=== PATIENT | male | born 1965 | race Caucasian/White ===

== ENCOUNTER 2024-03-04 13:15 | Inpatient (IN) | payer BC ==
[~2024-03-04] VITALS: Ht 177.8 cm; Wt 98.0 kg
[2024-03-04 13:31] VITALS: BP 113/74; PULSE 110; RESP 18; TEMP 103; O2SAT 98
[2024-03-04 14:36] LABS: BASOPHILS # (AUTO) 0.1 K/uL (0.00-0.22); BASOPHILS % (AUTO) 0.4 % (0.0-2.0); HEMATOCRIT 39.3 % (36-52); HEMOGLOBIN 13.7 g/dL (12.0-18.0); LYMPHOCYTES # (AUTO) 0.8 K/uL (2.0-11.5); LYMPHOCYTES % (AUTO) 6.1 % (20.5-51.1); MEAN CORPUSCULAR HEMOGLOBIN 29 pg (27-31); MEAN CORPUSCULAR HGB CONC 35 g/dL (33-37); MEAN CORPUSCULAR VOLUME 83.7 fL (80-94); MONOCYTES % (AUTO) 8.1 % (1.7-9.3); NEUTROPHILS # (AUTO) 10.7 K/uL (1.8-7.7); NEUTROPHILS % (AUTO) 85.4 % (42.2-75.2); PLATELET COUNT (AUTO) 210 K/uL (140-450); RED CELL DISTRIBUTION WIDTH 14.3 % (11.6-13.7); WHITE BLOOD COUNT (AUTO) 12.5 K/uL (4.8-10.8)
[2024-03-04] MEDS: NACL 0.9% 2,000 ML IV SCH (14:39)
[2024-03-04 14:45] LABS: APPEARANCE,URINE CLEAR (CLEAR); BILIRUBIN,URINE 1+ (NEGATIVE); BLOOD, URINE 1+ (NEGATIVE); COLOR,URINE YELLOW (YELLOW); LEUKOCYTE ESTERASE ,URINE NEGATIVE (NEGATIVE); NITRITE, URINE NEGATIVE (NEGATIVE); PROTEIN,URINE 1+ (NEGATIVE); UGLUCOSE NEGATIVE (NEGATIVE)
[2024-03-04 14:53] LABS: ANION GAP 13.6 (8-16); CALCIUM 8.7 mg/dL (8.5-10.1); CARBON DIOXIDE 27.4 mmol/L (21-32); CREATININE 1.7 mg/dL (0.6-1.3)
[2024-03-04 14:59] LABS: ALBUMIN 3.4 g/dL (3.4-5.0); BILIRUBIN,DIRECT 0.3 mg/dL (0.0-0.3); TOTAL BILIRUBIN 0.8 mg/dL (0.0-1.0); TOTAL PROTEIN, SERUM 7.8 g/dL (6.4-8.2)
[2024-03-04 15:11] LABS: LACTIC ACID 3.6 mmol/L (0.4-2.0)
[2024-03-04] MEDS ORDERED: cefTRIAXone 1,000 MG VIAL ONE (15:15)
[2024-03-04 15:28] LABS: ICTOTEST NEGATIVE (NEGATIVE)
[2024-03-04 15:29] LABS: BACTERIA,URINE FEW /HPF (None Seen); MUCUS,URINE None Seen /LPF (None Seen); SQUAMOUS EPITHELIAL CELL,UR 4-10 (MOD) /LPF (0-3 (FEW)); TRICHOMONAS,URINE None Seen /HPF (None Seen); YEAST,URINE None Seen /HPF (None Seen)
[2024-03-04 15:30] LABS: FINE GRANULAR CASTS,URINE 0-10 /LPF (None Seen)
[2024-03-04] MEDS: KETOROLAC 30 MG/ML VIAL IVP ONE (15:43)
[2024-03-04] MEDS: ACETAMINOPHEN EXTRA STRENGTH 500 MG TAB PO ONE (15:46)
[2024-03-04] MEDS: POTASSIUM CHLORIDE 10 MEQ TABER PO ONE (15:49)
[2024-03-04] MEDS: MAGNESIUM OXIDE 400 MG TAB PO ONE (15:51)
[2024-03-04] MEDS ORDERED: AZITHROMYCIN 500 MG INJ VIAL IV ONE (17:08)
[2024-03-04] MEDS: NACL 0.9% 500 ML IV ONE (17:09)
[2024-03-04] MEDS ORDERED: ALBUTEROL 0.083% 2.5 MG/3 ML NEBU INH PRN (17:10)
[2024-03-04] MEDS ORDERED: ONDANSETRON 4 MG/2 ML VIAL IVP PRN (17:10)
[2024-03-04] MEDS ORDERED: HYDROcodone/APAP 5/325 MG 1 TAB TAB PO PRN ×2 (17:10)
[2024-03-04] MEDS ORDERED: AZITHROMYCIN 500 MG in DEXTROSE 5% 250 ML IV SCH (17:10)
[2024-03-04] MEDS: AZITHROMYCIN 500 MG in DEXTROSE 5% 250 ML IV ONE (17:13)
[2024-03-04] MEDS: NACL 0.9% 1,000 ML IV SCH (18:23)
[2024-03-04 19:08] LABS: FLU A ANTIGEN negative (NEGATIVE); FLU B ANTIGEN negative (NEGATIVE)
[2024-03-04] MEDS: IPRATROPIUM 0.02% 0.5 MG/2.5 ML NEBU INH SCH (19:27)
[2024-03-04 20:05] VITALS: BP 129/84; PULSE 104; RESP 18; RESP 20; TEMP 100.1; O2SAT 94; O2SAT 98
[2024-03-04 20:58] VITALS: PULSE 98; RESP 18; O2SAT 98
[2024-03-04] MEDS: ZINC SULF 220 MG CAP PO SCH (21:10)
[2024-03-04] MEDS: ACETAMINOPHEN 325 MG TAB PO PRN (23:40)
[2024-03-05] VITALS (9 sets, daily range): BP systolic 95–108; BP diastolic 57–66; PULSE 64–104; RESP 17–20; TEMP 97.5–103.1; O2SAT 95–100
[2024-03-05 05:52] LABS: ANION GAP 13.6 (8-16); CALCIUM 7.7 mg/dL (8.5-10.1); CARBON DIOXIDE 24.3 mmol/L (21-32); CREATININE 1.4 mg/dL (0.6-1.3)
[2024-03-05 06:29] LABS: POTASSIUM 2.9 mmol/L (3.5-5.1)
[2024-03-05 06:50] LABS: BASOPHILS # (AUTO) 0.1 K/uL (0.00-0.22); BASOPHILS % (AUTO) 0.6 % (0.0-2.0); EOSINOPHILS % (AUTO) 0.4 % (0.0-4.0); HEMATOCRIT 35.9 % (36-52); HEMOGLOBIN 12.5 g/dL (12.0-18.0); LYMPHOCYTES # (AUTO) 1.4 K/uL (2.0-11.5); LYMPHOCYTES % (AUTO) 12.7 % (20.5-51.1); MEAN CORPUSCULAR HEMOGLOBIN 29 pg (27-31); MEAN CORPUSCULAR HGB CONC 35 g/dL (33-37); MEAN CORPUSCULAR VOLUME 82.9 fL (80-94); MONOCYTES # (AUTO) 1.1 K/uL (0.8-1.0); MONOCYTES % (AUTO) 10.2 % (1.7-9.3); NEUTROPHILS # (AUTO) 8.3 K/uL (1.8-7.7); NEUTROPHILS % (AUTO) 76.1 % (42.2-75.2); PLATELET COUNT (AUTO) 193 K/uL (140-450); RED BLOOD CELL COUNT(AUTO) 4.33 MIL/uL (4.20-6.10); RED CELL DISTRIBUTION WIDTH 13.8 % (11.6-13.7); WHITE BLOOD COUNT (AUTO) 10.9 K/uL (4.8-10.8)
[2024-03-05] MEDS: VITAMIN D 400 IU TAB PO SCH (08:10)
[2024-03-05] MEDS: AZITHROMYCIN 250 MG TAB PO SCH (08:11)
[2024-03-05] MEDS: ASCORBIC ACID 500 MG TAB PO SCH (08:12)
[2024-03-05] MEDS: ENOXAPARIN 40 MG/0.4 ML SYR SUBQ SCH (08:16)
[2024-03-05] MEDS: POTASSIUM CHLORIDE 10 MEQ TABER PO SCH (10:09)
[2024-03-05] MEDS: ZOLPIDEM 5 MG TAB PO PRN (21:33)
[2024-03-06] VITALS (9 sets, daily range): BP systolic 97–116; BP diastolic 51–70; PULSE 60–84; RESP 17–22; TEMP 97.7–98.3; O2SAT 95–100
[2024-03-06 05:21] LABS: BASOPHILS % (AUTO) 0.2 % (0.0-2.0); HEMATOCRIT 33.7 % (36-52); HEMOGLOBIN 11.6 g/dL (12.0-18.0); LYMPHOCYTES # (AUTO) 1.3 K/uL (2.0-11.5); LYMPHOCYTES % (AUTO) 9.4 % (20.5-51.1); MEAN CORPUSCULAR HEMOGLOBIN 29 pg (27-31); MEAN CORPUSCULAR HGB CONC 34 g/dL (33-37); MEAN CORPUSCULAR VOLUME 83.2 fL (80-94); MONOCYTES # (AUTO) 1.1 K/uL (0.8-1.0); MONOCYTES % (AUTO) 8.3 % (1.7-9.3); NEUTROPHILS # (AUTO) 11.3 K/uL (1.8-7.7); NEUTROPHILS % (AUTO) 82.1 % (42.2-75.2); PLATELET COUNT (AUTO) 196 K/uL (140-450); RED BLOOD CELL COUNT(AUTO) 4.05 MIL/uL (4.20-6.10); RED CELL DISTRIBUTION WIDTH 13.9 % (11.6-13.7); WHITE BLOOD COUNT (AUTO) 13.8 K/uL (4.8-10.8)
[2024-03-06 05:40] LABS: ANION GAP 13.1 (8-16); CALCIUM 7.8 mg/dL (8.5-10.1); CARBON DIOXIDE 25.1 mmol/L (21-32); CREATININE 1.1 mg/dL (0.6-1.3); POTASSIUM 4.2 mmol/L (3.5-5.1)
[2024-03-06 07:42] LABS: LACTIC ACID 1.3 mmol/L (0.4-2.0)
[2024-03-07 01:40] VITALS: O2SAT 96
[2024-03-07 02:49] VITALS: O2SAT 99
[2024-03-07 04:43] VITALS: BP 113/64; PULSE 68; RESP 20; TEMP 97.9; O2SAT 97
[2024-03-07 05:53] LABS: BASOPHILS % (AUTO) 0.2 % (0.0-2.0); EOSINOPHILS % (AUTO) 0.1 % (0.0-4.0); HEMATOCRIT 34.7 % (36-52); LYMPHOCYTES # (AUTO) 1.8 K/uL (2.0-11.5); LYMPHOCYTES % (AUTO) 11.6 % (20.5-51.1); MEAN CORPUSCULAR HEMOGLOBIN 29 pg (27-31); MEAN CORPUSCULAR HGB CONC 35 g/dL (33-37); MEAN CORPUSCULAR VOLUME 83.8 fL (80-94); MONOCYTES % (AUTO) 6.6 % (1.7-9.3); NEUTROPHILS # (AUTO) 12.7 K/uL (1.8-7.7); NEUTROPHILS % (AUTO) 81.5 % (42.2-75.2); PLATELET COUNT (AUTO) 266 K/uL (140-450); RED BLOOD CELL COUNT(AUTO) 4.14 MIL/uL (4.20-6.10); RED CELL DISTRIBUTION WIDTH 14.3 % (11.6-13.7); WHITE BLOOD COUNT (AUTO) 15.5 K/uL (4.8-10.8)
[2024-03-07 06:27] LABS: ANION GAP 12.3 (8-16); CALCIUM 8.4 mg/dL (8.5-10.1); CREATININE 1.1 mg/dL (0.6-1.3); POTASSIUM 4.3 mmol/L (3.5-5.1)
[2024-03-07 08:00] VITALS: BP 112/65; PULSE 58; RESP 18; TEMP 98.2; O2SAT 97
[2024-03-07] MEDS ORDERED: DEXT-430 PO (12:12)
[2024-03-07] MEDS ORDERED: LEVO750T75 PO (12:12)
[2024-03-07] MEDS ORDERED: PRED20TA5 PO (12:12)
== END 2024-03-07 12:40 | disposition home or self-care (01) | DRG 871 ==
LOC: MED 13:15 → MTU 17:14
PROVIDERS: ADMIT Family Medicine; ATTEND Family Medicine
DX: A41.9 Sepsis, unspecified organism (principal); J18.9 Pneumonia, unspecified organism; J96.01 Acute respiratory failure with hypoxia; N17.0 Acute kidney failure with tubular necrosis; E87.1 Hypo-osmolality and hyponatremia; Z20.822 Contact with and (suspected) exposure to COVID-19; R65.20 Severe sepsis without septic shock; E87.6 Hypokalemia; I10 Essential (primary) hypertension; E78.5 Hyperlipidemia, unspecified; Z79.899 Other long term (current) drug therapy
CPT/HCPCS: 36415; 71045; 80048; 80076; 81001; 83605; 83735; 85025; 85379; 85651; 86140; 86886; 86900; 86901; 87040; 87081; 87086; 87420; 93005; 93970; 94640; 96361; 96365; 96375; 99285; J0456; J0696; J1650; J1885; J7060; J7644; Q0092